=== PATIENT | male | born 2005 | race Caucasian/White ===

== ENCOUNTER 2025-03-09 15:44 | Emergency (ER) | payer SELFPAY ==
--- NOTE | ~2025-03-09 | CT_ITS ---
CLINICAL INDICATION: Left flank pain COMPARISON: None. TECHNIQUE: Multiple contiguous axial images of the abdomen and pelvis were performed without the admi nistration of intravenous contrast The dose-length product (DLP) was 238.98 mGy-cm. Automated exposure control and iterative reconstruction technique were employed. FINDINGS/OBSERVATIONS: Visualized lower thorax: The bilateral lung bases are clear. The heart is of normal size, without pericardial effusion. Small hiatal hernia is present. Liver: The liver demonstrates homogeneous attenuation and is not enlarged. Gallbladder and biliary system: The gallbladder is only minimally distended, and otherwise unremarkable. Pancreas: Limited evaluation of the pancreas secondary to the lack of intravenous contrast. Spleen: The spleen demonstrates homogeneous attenuation and is not enlarged. Kidneys: The bilateral kidneys are unremarkable, without hydronephrosis or renal calculi. Adrenal glands: Unremarkable. Gastrointestinal tract: Fecal stasis within the colon. Appendix: The air-filled appendix is of normal caliber (axial series, images 106 through 120). Vasculature: Unremarkable. Lymph nodes: No pathologically enlarged or morphologically suspicious lymph nodes within the retroperitoneum or at the root of the mesentery. Pelvic structures: The bladder is only minimally distended, and demonstrates thickened roblero, likely secondary to underd istention. The prostate gland is not enlarged. Body wall and musculoskeletal: No significant degenerative disease within the lower thoracic or lumbosacral spine. IMPRESSION: No obstructive uropathy. Unremarkable CT examination of the abdomen and pelvis, as detailed above. Reviewed, dictated and finalized at location A.
--- NOTE | ~2025-03-09 | US_ITS ---
EXAMINATION: US scrotum doppler DATE: 03/09/2025 16:25 INDICATION: Left testicular pain TECHNIQUE: Testicular sonogram utilizing grayscale and Doppler COMPARISON: None. FINDINGS: The right testis measures 5.5 x 2.6 x 4.1 cm. The left testis measures 4.4 x 2.4 x 3.2 cm. Symmetric normal grayscale appearance to both testes. There is normal vascular flow to both testes. The right e pididymis is normal with normal vascular flow. The left epididymis is normal with normal vascular reginaldo w. There is no varicocele or hydrocele. IMPRESSION: 1. Normal scrotal ultrasound. Reviewed, dictated and finalized at location A.
[2025-03-09 15:46] VITALS: BP 147/62; PULSE 75; RESP 18; TEMP 36.4; O2SAT 100
--- OUTSIDE RECORDS SUMMARY | 2025-03-09 15:47 | XMS_ITS | CONTINUITY OF CARE DOCUMENT ---
Author Name tianna wynn Address Unknown Organization [facility] Address [address] [place] [address] Phone [phone] Care Team Providers Care Level Vial Inspector And Tester Name Role Phone Ron COLEMAN, Fransisco Unavailable Fransisco Velasquez MD Unavailable [phone] INSURANCE PROVIDERS Payer name Policy type / Coverage type [place] [employer] [place] Medicaid [id number]
--- OUTSIDE RECORDS SUMMARY | 2025-03-09 15:47 | XMS_ITS | Clinical Summary ---
Author Organization [facility] Address [address] [place] [address] Care Team Providers Care Store Merchandiser Name Role Phone Jose Cruz Torres MD Primary Care Provider [phone] Zoe Blackmon MD Unavailable [phone] Source Comments [facility],non-owned Affiliates and Associated Physician Practices is amultiple site organization consisting of ambulatory clinics and hospital sitesin [place], [place], [place] and [place]. This disclosure is being madepursuant to the Care Everywhere program and may not contain all information available regarding this patient. Last updated 18.[facility] Allergies Active Allergy Reactions Criticality Noted Date Comments Adhesive Sensitivity Topical Medium 12/19/2019 Tegaderm causes rash Erythromycin Rash Medium 12/15/2017 Medications * Be aware that medications may not be up to date on this document. Alwaysverify current medications with the patient. topiramate (TOPAMAX) 50 MG tablet Take 1 tablet by mouth 2 times daily 60 tablet 5 0 Active gabapentin (NEURONTIN) 300 MG capsule Take 1 capsule by mouth at bedtime 30 capsule 3 0 Active Additional Information Patient not taking.Reported on 12/19/2019 multivitamin with iron (ONE A DAY WITH IRON) tablet Take 1 tablet by mouth once daily 30 tablet 5 0 Active Additional Information Patient not taking.Reported on 12/19/2019 Active Problems Problem Noted Date Diagnosed Date Hypertrophy of tonsils and adenoids 12/05/2019 Migraine without aura and wi thout status migrainosus, not intractable 11/08/2019 Seizure 11/08/2019 Snoring 07/26/2019 Closed displaced fracture of lateral malleolus of fibula with routine healing 07/22/2019 Painful orthopaedic hardware 07/22/2019 Seizure 10/31/2018 Epigastric abdominal tenderness without rebound tenderness 12/15/2017 Non-intractable vomiting without nausea 12/15/19 18 NSAID long-term use 12/15/2017 ROBBIE (obstructive sleep apnea) Assessment & Plan (11/08/2019 11:12 AM CUSTOMER SUPPORT PROFESSIONAL): On CPAP Family History Medical History Relation Name Comments Other Maternal Grandmother GERD Ulcerative Colitis Maternal Grandmother Migraine Mother Celiac Disease Neg Hx Crohn's Disease Neg Hx Relation Name Status Comments Maternal Grandmother Mother Social History Tobacco Use Types Packs/Day Years Used Date Smoking Tobacco: Never Smokeless Tobacco: Former Alcohol Use Standard Drinks/Week Comments No 0 (1 standard drink = 0.6 oz pur e alcohol) Sex and Gender Information Value Date Recorded Sex Assigned at Not on file Legal Sex Male 9:26 AM CUSTOMER SUPPORT PROFESSIONAL Gender Identity Not on file Sexual Orientation Not on file Last Filed Vital Signs Vital Sign Reading Time Taken Comments Blood Pressure 111/49 12/20/2019 3:32 AM CUSTOMER SUPPORT PROFESSIONAL Pulse 56 12/20/2019 3:32 AM CUSTOMER SUPPORT PROFESSIONAL Temperature 36.5 C (97.7 F) 12/20/2019 3:32 AM CUSTOMER SUPPORT PROFESSIONAL Respiratory Rate 14 12/20/2019 3:32 AM CUSTOMER SUPPORT PROFESSIONAL Oxygen Saturation 98% 12/20/2019 3:32 AM CUSTOMER SUPPORT PROFESSIONAL Inhaled Oxygen Concentration - - Weight 100.7 kg (222 lb 0.1 oz) 020 12:40 PM CUSTOMER SUPPORT PROFESSIONAL Height 172.3 cm (5' 7.84 ) 12/19/2019 1 2:40 PM CUSTOMER SUPPORT PROFESSIONAL Body Mass Index 33.92 12/19/2019 12:40 PM CUSTOMER SUPPORT PROFESSIONAL Plan of Treatment Health Maintenance Due Date Last Done Comments HIV SCREENING 2018 HPV VACCINE (1 - Male 3-dose series) 2018 MENINGOCOCCAL (Group B) VACC INE SHARED DECISION-MAKING (1 of 2 - Standard) 2019 HEPATITIS C SCREENING 02/21/2021 DTAP/TDAP/TD VACCINES (1 - Tdap) 2022 HEPATITIS B VACCINE (1 of 3 - 19+ 3-dose series) 2022 COVID-19 VACCINE (2023-2 5 season) 2024 DEPRESSION SCREENING 10/18/2024 INFLUENZA VACCINE (Season Ended) 2025 ZOSTER VACCINE (1 of 2) 2053 HIB VACCINE Aged Out No longer eligi ble based on patient's age to complete this topic MENINGOCOCCAL GROUPS A/C/Y/W VACCINE Aged Out No longer eligible b ased on patient's age to complete this topic PNEUMOCOCCAL VACCINE Aged Out No long er eligible based on patient's age to complete this topic Insurance [facility] Care Address: [address] [address] [facility] Care Teams Store Merchandiser Relationship Specialty Start Date End Date Jose Cruz Torres MD PCP - General Pediatrics 10/31/18 Zoe Blackmon MD Orthopedic Surgery 08/15/19
--- NOTE | 2025-03-09 15:53 | ED.MALEGU ---
HPI - Male Genitourinary General Chief complaint: Urogenital-Male <Jazz Fish APRN - Last Filed: 03/09/25 15:55> Stated complaint: Back pain radiating down to left testicle <Jazz Fish APRN - Last Filed: 03/09/25 15:55> Time Seen by Provider: 03/09/25 15:50 <Jazz Fish APRN - Last Filed: 03/09/25 15:55> Focused HPI: Patient is a 20-year-old male who presents to the ER with bilateral back pain that radiates to his right hip and left testicle. He reports the pain started earlier today. Patient denies any injury to his back or groin. He denies abdominal pain, penile discharge, recent fevers, or urinary symptoms. Pt denies any pertinent medical history relevant to this ER visit. GENERAL: Well-appearing, well-nourished, and in no acute distress. HEAD: Normocephalic, atraumatic. CHEST: Clear to auscultation. ?No respiratory distress. HEART: Regular rate and rhythm.? NEURO: ?Alert and oriented x3. Patient screened in triage and initial orders placed.? ?Additional care and disposition to be based upon?diagnostic testing and treatment. <Jazz Fish APRN - Last Filed: 03/09/25 15:55> History of Present Illness HPI Narrative: Agree with HPI <Amish Underwood MD - Last Filed: 03/09/25 21:13> Related Data Allergies/Adverse reactions: Allergies Allergy/AdvReac Type Severity Reaction Status Date / Time erythromycin base Allergy Intermediate Rash Verified 03/09/25 15:46 <Jazz Fish APRN - Last Filed: 03/09/25 15:55> Review of Systems Review of Systems: All systems reviewed & are unremarkable except as noted in HPI and below <Amish Underwood MD - Last Filed: 03/09/25 21:13> Constitutional: Constitutional: Reports no additional constitutional complaints <Amish Underwood MD - Last Filed: 03/09/25 21:13> Gastrointestinal: Gastrointestinal: Reports no additional gastrointestinal complaints <Amish Underwood MD - Last Filed: 03/09/25 21:13> Genitourinary: Genitourinary: Reports no additional male genitourinary complaints <Amish Underwood MD - Last Filed: 03/09/25 21:13> Exam Narrative: GENERAL: Well-appearing, well-nourished, and in no acute distress. HEAD: Normocephalic, atraumatic. ENT: Mucous membranes moist. CHEST: Clear to auscultation. No respiratory distress. HEART: Regular rate and rhythm. Normal peripheral pulses. : Normal appearing external genitalia. No inguinal hernia. No tenderness the testicles or spermatic cord. EXTREMITIES: Normal range of motion. No edema. SKIN: Warm, dry, no rash. NEURO: Alert and oriented x3. PSYCH: Normal mood and affect. <Amish Underwood MD - Last Filed: 03/09/25 21:13> Course Course Emergency Course: Patient informed of results. Toradol for pain. Discharge home. Anti-inflammatories and snug fitting underwear. Follow-up with PCP. <Amish Underwood MD - Last Filed: 03/09/25 21:13> Vital Signs Vital signs: Vital Signs Temperature 97.6 F 03/09/25 15:46 Pulse Rate 75 03/09/25 15:46 Respiratory Rate 18 03/09/25 15:46 Blood Pressure 147/62 H 03/09/25 15:46 Pulse Oximetry 100 03/09/25 15:46 Oxygen Delivery Room Air 03/09/25 15:46 Temperature 97.6 F 03/09/25 15:46 Pulse Rate 80 03/09/25 18:37 Respiratory Rate 16 03/09/25 18:37 Blood Pressure 132/84 03/09/25 18:37 Pulse Oximetry 99 03/09/25 18:37 Oxygen Delivery Room Air 03/09/25 15:46 <Jazz Fish APRN - Last Filed: 03/09/25 15:55> Vital Signs Temperature 97.6 F 03/09/25 15:46 Pulse Rate 75 03/09/25 15:46 Respiratory Rate 18 03/09/25 15:46 Blood Pressure 147/62 H 03/09/25 15:46 Pulse Oximetry 100 03/09/25 15:46 Oxygen Delivery Room Air 03/09/25 15:46 Temperature 97.6 F 03/09/25 15:46 Pulse Rate 80 03/09/25 18:37 Respiratory Rate 16 03/09/25 18:37 Blood Pressure 132/84 03/09/25 18:37 Pulse Oximetry 99 03/09/25 18:37 Oxygen Delivery Room Air 03/09/25 15:46 <Amish Underwood MD - Last Filed: 03/09/25 21:13> MDM - Male Genitourinary Lab Data Labs: Lab Results 03/09/25 Range/Units 16:30 Urine Color Yellow (Yellow) Urine Appearance Clear (Clear) Urine pH 7.0 (5.0-9.0) Ur Specific [place] 1.012 (1.001-1.035) Urine Protein Negative (Negative) mg/dL Urine Glucose (UA) Negative (Negative) mg/dL Urine Ketones Negative (Negative) mg/dL Ur Blood (Man) Negative (Negative) Urine Nitrate Negative (Negative) Urine Bilirubin Negative (Negative) Urine Urobilinogen 0.2 (<2.0) mg/dL Leukocyte Esterase Rfl Negative (Negative) KRYSTEN/UL C. trachomatis (PCR) Not detected (NOT DETECTE) N. gonorrhoeae (PCR) Not detected (NOT DETECTE) T. vaginalis (PCR) Not detected (NOT DETECTE) <Jazz Fish APRN - Last Filed: 03/09/25 15:55> Lab Results 03/09/25 Range/Units 16:30 Urine Color Yellow (Yellow) Urine Appearance Clear (Clear) Urine pH 7.0 (5.0-9.0) Ur Specific [place] 1.012 (1.001-1.035) Urine Protein Negative (Negative) mg/dL Urine Glucose (UA) Negative (Negative) mg/dL Urine Ketones Negative (Negative) mg/dL Ur Blood (Man) Negative (Negative) Urine Nitrate Negative (Negative) Urine Bilirubin Negative (Negative) Urine Urobilinogen 0.2 (<2.0) mg/dL Leukocyte Esterase Rfl Negative (Negative) KRYSTEN/UL C. trachomatis (PCR) Not detected (NOT DETECTE) N. gonorrhoeae (PCR) Not detected (NOT DETECTE) T. vaginalis (PCR) Not detected (NOT DETECTE) <Amish Underwood MD - Last Filed: 03/09/25 21:13> Imaging Data Radiologist's impression: ITS Impressions Scrotum Ultrasound 03/09/25 16:51 IMPRESSION: 1. Normal scrotal ultrasound. Abdomen/Pelvis CT 03/09/25 17:56 IMPRESSION: No obstructive uropathy. Unremarkable CT examination of the abdomen and pelvis, as detailed above. <Amish Underwood MD - Last Filed: 03/09/25 21:13> Discharge Plan Discharge Clinical Impression: Pain in left testicle <Jazz Fish APRN - Last Filed: 03/09/25 15:55> Patient Disposition: Home <Jazz Fish APRN - Last Filed: 03/09/25 15:55> Condition: Stable <Jazz Fish APRN - Last Filed: 03/09/25 15:55> Instructions: Testicle Pain (ED) <Jazz Fish APRN - Last Filed: 03/09/25 15:55> Additional Instructions: Take anti-inflammatory medication and wear tight-fitting underwear to help with your discomfort. Avoid any heavy lifting over the next week. Follow-up with your primary care doctor for further treatment and evaluation. There is no evidence of testicular injury, testicular/urinary infection, or kidney stones. <Jazz Fish APRN - Last Filed: 03/09/25 15:55> Patient Language: [place] <Jazz Fish APRN - Last Filed: 03/09/25 15:55> Prescriptions: New naproxen 375 mg tablet 375 mg PO BID Qty: 14 0RF <Jazz Fish APRN - Last Filed: 03/09/25 15:55> Follow-up/Referrals: Romero,MD Arabella [Primary Care Provider] - 1 Week <Jazz Fish APRN - Last Filed: 03/09/25 15:55> Stand Alone Forms: Work/School Release IP <Jazz Fish APRN - Last Filed: 03/09/25 15:55>
[2025-03-09 16:41] LABS: Add Urine Microscopic? NO; Appearance Urine Clear (Clear); Bilirubin Urine Negative (Negative); Blood Urine Negative (Negative); Color Urine Yellow (Yellow); Glucose Urine UA Negative (Negative); Ketones Urine Negative (Negative); Leukocyte Esterase Ur Negative LEU/UL (Negative); Nitrate Urine Negative (Negative); Protein Urine Negative (Negative); Specific Grav Ur 1.012 (1.001-1.035); Urobilinogen Urine 0.2 mg/dL (<2.0)
--- OUTSIDE RECORDS SUMMARY | 2025-03-09 17:20 | XMS_ITS | Clinical Summary ---
Author Organization [facility] Address [address] [place] [address] Care Team Providers Care Production Engineer Name Role Phone Jose Cruz Torres MD Primary Care Provider [phone] Zoe Blackmon MD Unavailable [phone] Source Comments [facility],non-owned Affiliates and Associated Physician Practices is amultiple site organization consisting of ambulatory clinics and hospital sitesin [place], [place], [place]. This disclosure is being madepursuant to the Care Everywhere program and may not contain all information available regarding this patient. Last updated 18.[facility] Allergies Active Allergy Reactions Criticality Noted Date [...] apnea) Assessment & Plan (11/08/2019 11:12 AM FRUIT STUFFER): On CPAP Family History Medical History Relation [...] on file Legal Sex Male 9:26 AM FRUIT STUFFER Gender Identity Not on file Sexual Orientation Not on file Last Filed Vital Signs Vital Sign Reading Time Taken Comments Blood Pressure 111/49 12/20/2019 3:32 AM FRUIT STUFFER Pulse 56 12/20/2019 3:32 AM FRUIT STUFFER Temperature 36.5 C (97.7 F) 12/20/2019 3:32 AM FRUIT STUFFER Respiratory Rate 14 12/20/2019 3:32 AM FRUIT STUFFER Oxygen Saturation 98% 12/20/2019 3:32 AM FRUIT STUFFER Inhaled Oxygen Concentration - - Weight 100.7 kg (222 lb 0.1 oz) 020 12:40 PM FRUIT STUFFER Height 172.3 cm (5' 7.84 ) 12/19/2019 1 2:40 PM FRUIT STUFFER Body Mass Index 33.92 12/19/2019 12:40 PM FRUIT STUFFER Plan of Treatment Health Maintenance Due Date [...] patient's age to complete this topic Insurance [facility] Care Teams Production Engineer Relationship Specialty Start Date End Date Jose Cruz Torres MD PCP - General Pediatrics 10/31/18 Zoe Blackmon MD Orthopedic Surgery 08/15/19
--- OUTSIDE RECORDS SUMMARY | 2025-03-09 17:20 | XMS_ITS | CONTINUITY OF CARE DOCUMENT ---
Author Name tianna wynn Address Unknown Organization [facility] Address [address] [place] [address] Phone [phone] Care Team Providers Care Manager Membership Name Role Phone Ron COLEMAN, Fransisco Unavailable Fransisco Velasquez MD Unavailable [phone] INSURANCE PROVIDERS Payer name Policy type / Coverage type [place] red democrat [place] MED[place] Medicaid [id number]
[2025-03-09 17:46] LABS: Trichomonas Vag PCR NOT DETECTED (NOT DETECTE)
[2025-03-09] MEDS: KETOROLAC 30 MG/ML VIAL (*BKC) IM (18:09)
[2025-03-09 18:10] LABS: Chlamydia trachomatis NOT DETECTED (NOT DETECTE); Neisseria gonorrhoeae PCR NOT DETECTED (NOT DETECTE)
[2025-03-09 18:37] VITALS: BP 132/84; PULSE 80; RESP 16; O2SAT 99
== END 2025-03-09 18:38 | disposition home or self-care (01) ==
PROVIDERS: Registered Nurse; Emergency Provider Emergency Medicine; PCP Pediatrics
DX: N50.812 Left testicular pain (principal); Z11.3 Encounter for screening for infections with a predominantly sexual mode of transmission
CPT/HCPCS: 74176; 76870; 81003; 87491; 87591; 87661; 93976; 96372; 99284; J1885